=== PATIENT | female | born 1980 | race Caucasian/White ===

== ENCOUNTER 2022-11-17 05:32 | Day surgery (SDC) | payer BC ==
[2022-11-15 16:09] VITALS: BMI 33.8
[2022-11-15 16:28] LABS: Mean Corpuscular HGB CONC 30.9 g/dL (32.0-36.0); Mean Corpuscular Hemoglobin 25.2 pg (27.0-33.0); Mean Corpuscular Volume 81.5 fl (81.6-98.3); Mean Platelet Volume 8.8 fl (7.4-10.4); Platelet Count 399 10x3/uL (150-450); RBC Distribution Width 16.8 % (11.5-14.5); Red Blood Cell (RBC) Count 4.37 10x6/uL (3.90-5.03)
[2022-11-15 16:40] LABS: BHCG - Serum Negative (NEGATIVE); Pregs Control Background? CLEAR/WHITE (CLR/WHITE); Pregs Control Bar Appear? YES (CONTROL BAR)
[2022-11-17] MEDS ORDERED: Gabapentin 300 MG CAP ONE (06:03)
[2022-11-17] MEDS ORDERED: CeleCOXIB 100 MG CAP ONE (06:04)
[2022-11-17] MEDS ORDERED: Famotidine/PF 20 mg/2ml Vial ONE (06:04)
[2022-11-17] MEDS ORDERED: Bupivacaine HCl 0.5%/Epinephrine 1:200,000/PF 30 ml Vial ONE (06:34)
[2022-11-17] MEDS ORDERED: PROPOFOL 20 ML ONE (06:46)
[2022-11-17] MEDS ORDERED: Glycopyrrolate 0.2 MG/ML 5 ML SYRINGE ONE ×2 (06:46→09:22)
[2022-11-17] MEDS ORDERED: Ondansetron PF 4 MG/2 ML Vial ONE (06:46)
[2022-11-17] MEDS ORDERED: Fentanyl 250 MCG/5 ML VIAL ONE (06:46)
[2022-11-17] MEDS ORDERED: Midazolam HCl 2 mg/2 ml Vial ONE (06:46)
[2022-11-17] MEDS ORDERED: Ketorolac Tromethamine 30 MG/ML VIAL ONE (06:46)
[2022-11-17] MEDS ORDERED: Rocuronium Bromide 10 MG/ML (10ML VIAL) ONE (06:46)
[2022-11-17] MEDS ORDERED: Lidocaine 1% PF 5 ML VIAL ONE (06:46)
[2022-11-17] MEDS ORDERED: Dexamethasone 20 MG/5 ML VIAL ONE (06:48)
[2022-11-17] MEDS ORDERED: CEFAZOLIN 2 GM VIAL ONE (07:11)
[2022-11-17] MEDS ORDERED: Meperidine HCl/PF 25 MG/ML VIAL ONE (09:16)
== END 2022-11-17 12:35 | disposition home or self-care (01) ==
LOC: CSHSDC 05:32
PROVIDERS: ATTEND Obstetrics & Gynecology
PROC: 0UT24ZZ Resection of Bilateral Ovaries, Percutaneous Endoscopic Approach (ICD-10-PCS; principal; 2022-11-17)
PROC: 0UT74ZZ Resection of Bilateral Fallopian Tubes, Percutaneous Endoscopic Approach (ICD-10-PCS; principal; 2022-11-17)
PROC: 0UT94ZZ Resection of Uterus, Percutaneous Endoscopic Approach (ICD-10-PCS; principal; 2022-11-17)
DX: N85.02 Endometrial intraepithelial neoplasia [EIN] (principal); N92.0 Excessive and frequent menstruation with regular cycle; E66.9 Obesity, unspecified; N94.6 Dysmenorrhea, unspecified; N73.6 Female pelvic peritoneal adhesions (postinfective); N32.89 Other specified disorders of bladder; Z68.39 Body mass index [BMI] 39.0-39.9, adult; Z79.899 Other long term (current) drug therapy; Z87.59 Personal history of other complications of pregnancy, childbirth and the puerperium
CPT/HCPCS: 84703; 85027; 86850; 86900; 86901; 88307; C1776; J1100; J1885; J2175; J2250; J2405; J2704; J3010; S0028